=== PATIENT | female | born 1980 | race Caucasian/White ===

== ENCOUNTER 2025-07-09 20:15 | Inpatient (IN) | payer MEDICARE, MEDICAID, SELFPAY ==
[2025-07-09 16:17] LABS: Hematocrit 40.8 % (37.0-47.0); Hemoglobin 14.1 g/dL (12.0-16.0); Mean Corp Hgb Conc. 34.6 g/dL (33.0-37.0); Mean Corpuscular Volume 89.3 fL (81.0-99.0); Nucleated Red Blood Cells % 0 %; Platelet Count 431 10^3/uL (130-400); Red Cell Dist. Width 13.0 % (11.5-14.5)
[2025-07-09 16:32] LABS: ALT (SGPT) 17 U/L (0-35); AST (SGOT) 26 U/L (14-36); Albumin 4.9 g/dl (3.5-5.0); Alkaline Phosphatase 98 U/L (38-126); Blood Urea Nitrogen 10 mg/dl (7-17); Calcium 9.7 mg/dl (8.4-10.2); Carbon Dioxide 16 mmol/L (22-30); Chloride 107 mmol/L (98-107); Glucose 181 mg/dl (70-99); Potassium 3.4 mmol/L (3.5-5.1); Sodium 140 mmol/L (135-145); Total Protein 8.4 g/dl (6.3-8.2); eGFR > 60.00
--- NOTE | 2025-07-09 16:36 | ED.GENMED ---
History of Present Illness
<Saadia Falk PA-C - Last Filed: 07/09/25 21:54>
General
Chief Complaint: Unresponsive
Source: patient and ambulance crew
Exam Limitations: none
Time Seen by Provider: 07/09/25 16:06
History of Present Illness
History of Present Illness:
45yoF with a history of hypertension, hyperlipidemia, bipolar disorder, schizoaffective disorder presenting for evaluation of altered mental status. History is obtained by EMS. 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
'hunched over' behind her car this afternoon. Patient was not responding verbally and EMS was called. Patient is able to answer simple questions upon arrival. She reports having a headache earlier in the day and took Excedrin. She is unsure how
much she took but denies any suicidality. She also took baclofen at 8 AM. Otherwise, she denies taking any other substances including illicit drugs or alcohol. Patient currently reports feeling 'shaky' but otherwise denies any specific complaints.
Past History
<Saadia Falk PA-C - Last Filed: 07/09/25 21:54>
Past History
ED Past Medical History: GERD, Hypercholesterolemia, Psychiatric (Tremors depression, schizoaffective disorder, borderline personality disorder. Previous suicide attempts, primarily nontoxic ingestions. Previous psychiatric hospitalizations.) and
Other (migraine HAs, lumbar HNP)
ED Past Surgical History: None
Social History
Tobacco: Non-smoker
Alcohol: Occasional
Drug: None
Personal: Single
Living: with family
Employment: Employed
Family History
Family History: Hypertension
Phy Exam
<Saadia Falk PA-C - Last Filed: 07/09/25 21:54>
General Physical Exam
General Presentation: no apparent distress
General Skin: warm and dry
General Habitus: normal
General Mental: alert
ENT Exam
ENT Exam: normocephalic
Cardiovascular Exam
Cardiovascular Exam: no edema and tachycardia
Pulmonary Exam
Pulmonary Exam: lungs clear, no respiratory distress, no rales, no crackles, no rhonchi and no wheezing
Neurological Exam
Neurological Exam: alert and other (Dysarthria noted. Patient able to answer basic yes/no questions but unable to provide full history. Follows commands in all extremities. )
Martín Coma Scale
Eye Opening: Spontaneous
Verbal Response: Confused
Motor Response: Obeys Commands
GCS Total Score: 14
Skin Exam
Skin Exam: normal color and warm/dry
Psychiatric Exam
Psychiatric Exam: agitated
Course
<Saadia Falk PA-C - Last Filed: 07/09/25 21:54>
Orders/Labs/Results
Orders:
Orders
07/09/25 15:57
Electrocardiogram (*1) Urgent
Reason for Study: Tachycardia
EKG- Treatment ONCE
07/09/25 16:06
Complete Blood Count/With Diff Urgent
Comprehensive Metabolic Panel Urgent
HCG, Serum Qualitative Screen Urgent
Comment: ADD ON
Magnesium Urgent
Comment: ADD ON
TSH Urgent
Comment: ADD ON
07/09/25 16:33
Add On- LAB Urgent
Tests Added?: TSH, magnesium, qualitative HCG
Cardiac Monitoring- Treatment ONCE
0.9% Sodium Chloride 1000 ml [Nss] 1,000 ml IV BOLUS
07/09/25 16:34
CT Head W/o Iv Contrast Urgent
Comment:
Reason For Exam: AMS
07/09/25 16:36
Potassium Chloride [KCl] 40 meq PO NOW STA
07/09/25 17:51
Alcohol Urgent
Salicylate Urgent
Troponin I Urgent
Tylenol [Acetaminophen] Urgent
07/09/25 18:59
Sodium Bicarbonate 100 meq IV NOW STA
07/09/25 19:10
Acetylcysteine [Acetadote] 9,320 mg 0.45% Sodium Chloride 250 ml [0.45%NaCl] 200 ml IV NOW
07/09/25 19:15
Dextrose 5%/Water 1000 ml [D5w] 1,000 ml Sodium Bicarbonate 150 meq IV 150 mls/hr
07/09/25 19:17
Potassium Chloride [KCl] 20 meq 0.9% Sodium Chloride 150 ml [Nss] 150 ml IV NOW
07/09/25 19:21
Prothrombin Time Urgent
Salicylate Urgent
Venous Blood Gas Urgent
%Oxygen/Room Air: room air
07/09/25 19:42
Admit/Transfer Patient As Directed
Co-Sign Provider:
Level of Care: Inpatient admission
Assign to:: ICU
Physician / Group: wilman
Diagnosis: tylenol/aspirin overdose
Reason for Hospitalization: tylenol/aspirin overdose
Expected length of stay greater than two midnights?: Yes
ELOS- Estimated Length of Stay in days: 2
I certify the patient meets the requirements for IP care: Yes
PRN Pain Medication Management As Directed
May give lesser potent ordered pain med per pt: Yes
preference::
Protocol:: Medication orders for pain may be administered in a
manner that supports deferring to patient preference
when the pt is:
- Requesting an ordered lesser potent pain medication.
Least to most potent pain medications are defined
as: acetaminophen < NSAID < tramadol < opioids
(morphine, oxycodone, hydromorphone).
- Requesting a lesser dose of the same medication IF
ORDERED.
- Requesting a less intrusive route of administration
if both routes are prescribed by the provider (PO <
IV).
07/09/25 19:43
Code Status As Directed
Resuscitation Status: Full Code
07/09/25 20:26
Urinalysis Reflex To Culture Urgent
Date Specimen was Collected: 07/09/25
Time Specimen was Collected: 20:25
Urine Drug Abuse Screen Urgent
Date Specimen was Collected: 07/09/25
Time Specimen was Collected: 20:25
07/09/25 20:30
Acetylcysteine [Acetadote] 3,100 mg 0.45% Sodium Chloride 500 ml [0.45%NaCl] 500 ml IV ONCE
07/10/25 00:30
Acetylcysteine [Acetadote] 6,220 mg 0.45% Sodium Chloride 1000 ml [0.45%NaCl] 1,000 ml IV ONCE
07/10/25 03:00
Sterile Water For Inj [Sterile Water For Injection 1000 ml] 1,000 ml Sodium Bicarbonate 150 meq IV 150 mls/hr
Abnormal Lab Results
07/09/25 07/09/25 07/09/25
16:06 17:51 19:21
Plt Count 431 H 10^3/uL
(130-400)
Abs Immat Gran (auto) 0.1 H 10^3/uL
(0-0.05)
Absolute Neuts (auto) 7.7 H 10^3/uL
(1.4-6.5)
Immature Gran % 0.6 H %
(0-0.5)
Lymphocytes % 20.2 L %
(20.5-51.1)
VBG pCO2 30 L mmHg
(35-48)
VBG pO2 130 H mmHg
(30-50)
VBG HCO3 16.2 L mmol/L
(22-27)
Potassium 3.4 L mmol/L
(3.5-5.1)
Carbon Dioxide 16 L mmol/L
(22-30)
Glucose 181 H mg/dl
(70-99)
Total Protein 8.4 H g/dl
(6.3-8.2)
Salicylates 32.2 H* mg/dl 31.2 H* mg/dl
(2.0-20.0) (2.0-20.0)
Acetaminophen 70 H ug/ml
(10-30)
07/09/25 16:06
07/09/25 16:06
Vital Signs
Initial and Last Documented VS:
Initial Vital Signs
Temp Pulse Resp Pulse Ox
98.3 F 166 20 99
07/09/25 15:54 07/09/25 15:54 07/09/25 15:54 07/09/25 15:54
Last Documented Vital Signs
Temp Pulse Resp BP Pulse Ox
98.3 F 109 13 147/92 99
07/09/25 15:54 07/09/25 17:00 07/09/25 17:00 07/09/25 17:00 07/09/25 16:45
<Karol Silva MD - Last Filed: 07/09/25 19:06>
Orders/Labs/Results
Orders:
Orders
07/09/25 15:57
Electrocardiogram (*1) Urgent
Reason for Study: Tachycardia
EKG- Treatment ONCE
07/09/25 16:06
Complete Blood Count/With Diff Urgent
Comprehensive Metabolic Panel Urgent
HCG, Serum Qualitative Screen Urgent
Comment: ADD ON
Magnesium Urgent
Comment: ADD ON
TSH Urgent
Comment: ADD ON
07/09/25 16:33
Add On- LAB Urgent
Tests Added?: TSH, magnesium, qualitative HCG
Cardiac Monitoring- Treatment ONCE
0.9% Sodium Chloride 1000 ml [Nss] 1,000 ml IV BOLUS
07/09/25 16:34
CT Head W/o Iv Contrast Urgent
Comment:
Reason For Exam: AMS
07/09/25 16:36
Potassium Chloride [KCl] 40 meq PO NOW STA
07/09/25 17:51
Alcohol Urgent
Salicylate Urgent
Troponin I Urgent
Tylenol [Acetaminophen] Urgent
07/09/25 18:59
Sodium Bicarbonate 100 meq IV NOW STA
07/09/25 19:10
Acetylcysteine [Acetadote] 9,320 mg 0.45% Sodium Chloride 250 ml [0.45%NaCl] 200 ml IV NOW
07/09/25 19:15
Dextrose 5%/Water 1000 ml [D5w] 1,000 ml Sodium Bicarbonate 150 meq IV 150 mls/hr
07/09/25 19:17
Potassium Chloride [KCl] 20 meq 0.9% Sodium Chloride 150 ml [Nss] 150 ml IV NOW
07/09/25 19:21
Prothrombin Time Urgent
Salicylate Urgent
Venous Blood Gas Urgent
%Oxygen/Room Air: room air
07/09/25 19:42
Admit/Transfer Patient As Directed
Co-Sign Provider:
Level of Care: Inpatient admission
Assign to:: ICU
Physician / Group: wilman
Diagnosis: tylenol/aspirin overdose
Reason for Hospitalization: tylenol/aspirin overdose
Expected length of stay greater than two midnights?: Yes
ELOS- Estimated Length of Stay in days: 2
I certify the patient meets the requirements for IP care: Yes
PRN Pain Medication Management As Directed
May give lesser potent ordered pain med per pt: Yes
preference::
Protocol:: Medication orders for pain may be administered in a
manner that supports deferring to patient preference
when the pt is:
- Requesting an ordered lesser potent pain medication.
Least to most potent pain medications are defined
as: acetaminophen < NSAID < tramadol < opioids
(morphine, oxycodone, hydromorphone).
- Requesting a lesser dose of the same medication IF
ORDERED.
- Requesting a less intrusive route of administration
if both routes are prescribed by the provider (PO <
IV).
07/09/25 19:43
Code Status As Directed
Resuscitation Status: Full Code
07/09/25 20:26
Urinalysis Reflex To Culture Urgent
Date Specimen was Collected: 07/09/25
Time Specimen was Collected: 20:25
Urine Drug Abuse Screen Urgent
Date Specimen was Collected: 07/09/25
Time Specimen was Collected: 20:25
07/09/25 20:30
Acetylcysteine [Acetadote] 3,100 mg 0.45% Sodium Chloride 500 ml [0.45%NaCl] 500 ml IV ONCE
07/10/25 00:30
Acetylcysteine [Acetadote] 6,220 mg 0.45% Sodium Chloride 1000 ml [0.45%NaCl] 1,000 ml IV ONCE
07/10/25 03:00
Sterile Water For Inj [Sterile Water For Injection 1000 ml] 1,000 ml Sodium Bicarbonate 150 meq IV 150 mls/hr
Abnormal Lab Results
07/09/25 07/09/25 07/09/25
16:06 17:51 19:21
Plt Count 431 H 10^3/uL
(130-400)
Abs Immat Gran (auto) 0.1 H 10^3/uL
(0-0.05)
Absolute Neuts (auto) 7.7 H 10^3/uL
(1.4-6.5)
Immature Gran % 0.6 H %
(0-0.5)
Lymphocytes % 20.2 L %
(20.5-51.1)
VBG pCO2 30 L mmHg
(35-48)
VBG pO2 130 H mmHg
(30-50)
VBG HCO3 16.2 L mmol/L
(22-27)
Potassium 3.4 L mmol/L
(3.5-5.1)
Carbon Dioxide 16 L mmol/L
(22-30)
Glucose 181 H mg/dl
(70-99)
Total Protein 8.4 H g/dl
(6.3-8.2)
Salicylates 32.2 H* mg/dl 31.2 H* mg/dl
(2.0-20.0) (2.0-20.0)
Acetaminophen 70 H ug/ml
(10-30)
07/09/25 16:06
07/09/25 16:06
Vital Signs
Initial and Last Documented VS:
Initial Vital Signs
Temp Pulse Resp Pulse Ox
98.3 F 166 20 99
07/09/25 15:54 07/09/25 15:54 07/09/25 15:54 07/09/25 15:54
Last Documented Vital Signs
Temp Pulse Resp BP Pulse Ox
98.3 F 109 13 147/92 99
07/09/25 15:54 07/09/25 17:00 07/09/25 17:00 07/09/25 17:00 07/09/25 16:45
<Saadia Falk PA-C - Last Filed: 07/09/25 21:54>
MDM/Problems Addressed
Differential Diagnosis Includes:
45yoF here with AMS. Found 'hunched over' unresponsive by her car this afternoon. Patient had minimal speech on arrival for triage nurse although she is able to answer simple questions on my assessment. She admits to taking Excedrin but unable to
provide any further details. She is tachycardic on arrival. Differential diagnosis includes but is not limited to: Toxidrome/drug overdose, electrolyte disturbance, renal failure, psychiatric, considered CVA although less likely
Initial ED plan: Check cardiac labs, TSH, salicylate/Tylenol/alcohol level, UDS, EKG, and CT head. IV fluid bolus.
<Saadia Falk PA-C - Last Filed: 07/09/25 21:54>
*Pulse Oximetry
SaO2: 99
Oxygen Mode of Delivery: Room air
Patient hypoxic: no (99%)
*EKG
Interpreted by ED Provider?: Yes
EKG Intrepretation Date: 07/09/25
Heart Rate: 116
Rate: tachycardiac
Rhythm: sinus
[place]: normal axis
Interval: other (QTc 480)
QRS Pattern: normal QRS
Ischemia: no ischemia
*Critical Care Note
Total Time (30-74mins, 75-104mins- exclusive of procedures): 35
<Saadia Falk PA-C - Last Filed: 07/09/25 21:54>
Update Note
Update Note:
Labs reveal a metabolic acidosis with a bicarb of 16. Salicylates 32.2 and Tylenol level 70. EKG shows sinus tachycardia with a QTc of 480. I spoke with patient again to inquire about her Excedrin. She is again unable to tell me exactly how much
she took but states she believes she took the medication around noon today. Patient persistently tachycardic and dry heaving on reassessment.
I spoke with on-call valve assembler at [facility], Dr. Alvarado, for recommendations. As history is unclear, will treat for both Tylenol and salicylate overdose. Toxicology recommending N-acetylcysteine with repeat CMP/INR in the morning and if normal at
that time, this can be discontinued. For the salicylate overdose, toxicology recommends 2 amps of bicarb now followed by a bicarb drip at 150 cc/hr and checking CMP, VBG, and salicylate levels every 4 hours. Stop criteria for bicarb gtt: pH >7.55
or if salicylate level is <20 for 2 consecutive checks and mentation is normal. Patient hospitalized for further management.
ED Attending Note
<Saadia Falk PA-C - Last Filed: 07/09/25 21:54>
-
Portions of this chart may have been created with voice recognition software.� Occasional wrong word or��sound alike� substitutions may have occurred due to the inherent limitations of voice recognition software.
<Karol Silva MD - Last Filed: 07/09/25 19:06>
ED Attending Note
Patient seen and examined by attending physician: Yes
I performed the substantive portion of visit, reviewed & personally made and approve the management plan that is documented in note by myself or BRITTANY.: Yes
ED Attending Note:
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 When asked to estimate she repeatedly states she does not know. She can commit to stating that it was less than 20
tablets that she took but cannot be more specific than that. She denies any other ingestions besides the usual doses of her usual medications. She was found behind her car at work slow to answer questions. No history or suspicion of trauma. Here
in the ER, patient is a poor historian. She denies any physical needs. She does specifically deny taking these meds as an intent for suicide. She states she just had a really bad headache that she wanted to get better. Patient is awake, not
confused, well-perfused. Labs and vitals noted here. Given that timeline is somewhat blurry as patient is somewhat nonspecific with timing, we will treat acetaminophen toxicity with NAC protocol, aspirin with bicarb drip, etc. etc. We have
consulted with [facility] valve assembler, are following those recommendations, admit to ICU.
Discharge Plan
Departure
Patient Disposition: Admit
Date of Disposition: 07/09/25
Time of Disposition: 19:14
Presentation/result/management discussed w/ accepting MD/DO: Hospitalist
Discharge Problem:
Salicylate overdose, Acetaminophen overdose, Acute encephalopathy
Interventions
Interventions:
*Risk Screen - Suicide Last Done: 07/09/25 17:11
*General Assessment Last Done: 07/09/25 17:11
*Neglect/Abuse Screening Last Done: 07/09/25 17:11
ED- Neurological Assessment Last Done: 07/09/25 16:00
[2025-07-09 16:52] LABS: HCG, Serum Qualitative Screen Negative
[2025-07-09] MEDS: NSS 1000 IV (16:55)
[2025-07-09 17:00] VITALS: BP 147/92
[2025-07-09 17:00] LABS: Magnesium 1.8 mg/dl (1.6-2.3)
[2025-07-09 17:10] VITALS: BMI 22.8
[2025-07-09 17:29] LABS: TSH 0.70 uIU/ml (0.47-4.68)
[2025-07-09 18:19] LABS: Acetaminophen 70 ug/ml (10-30); Salicylate 32.2 mg/dl (2.0-20.0)
[2025-07-09 18:25] LABS: Troponin I < 0.012 ng/ml
[2025-07-09 19:26] VITALS: BP 162/83
[2025-07-09] MEDS: SODIUM BICARBONATE 100 MEQ IV (19:32)
[2025-07-09] MEDS: ACETADOTE 246.6 MG IV ×2 (19:35→19:58)
[2025-07-09 19:36] LABS: Venous Blood Gas B.E. -8.2 mmol/L (-4 to +4); Venous Blood Gas O2 Sat % 99.7 %
[2025-07-09 19:47] LABS: INR 1.00; PT 13.7 Sec (11.4-14.6)
--- NOTE | 2025-07-09 19:47 | HPS.HSE ---
Family Physician
-
Family Physician: * NONE
Chief Complaint
-
drug overdose
History of Present Illness
45-year-old female past medical history of propranolol overdose, hypertension, hyperlipidemia, bipolar disorder, schizoaffective disorder, presenting for altered mental status. 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
hunched over behind her car this afternoon. Patient was not responding verbally and EMS was called. She reports having a migraine earlier in the day and took a massive number of Excedrin tablets to help with the headache. Although she has been
intermittently depressed she notes that her mood has not been particularly been bad in the past few days. She is complaining of vomiting and some abdominal discomfort from vomiting and shakiness. Denies diarrhea. Denies chest pain or shortness of
breath. She states that her headache is completely cured.
Her last migraine was in January.
She denies smoking or alcohol. She does have a medical marijuana card but she has not used marijuana since June 08.
Medical History
Past Medical History
Past Medical History: Reports Other ( propranolol overdose, hypertension, hyperlipidemia, bipolar disorder, schizoaffective disorder)
Past Surgical History: Reports None
Social History
Tobacco: Non-smoker
Alcohol: None
Drug: Marijuana
Family History
Family History: Not pertinent
Allergies / Home Medications
Allergies reflects when Allergies were last updated in [facility].
Home Medications with original date entered in [facility]
Allergy/Medication List:
Allergies
Allergy/AdvReac Type Severity Reaction Status Date / Time
amoxicillin (Amoxicillin) Allergy Rash Verified 07/09/25 16:00
chlorpromazine (From Allergy Unknown Verified 07/09/25 16:00
Thorazine)
haloperidol (From Haldol) Allergy Unknown Verified 07/09/25 16:00
Home Medications
acetaminophen 325 mg tablet 650 mg (2 x 325 mg) PO Q4HPRN PRN mild pain or fever ##0 10/22/15
Atorvastatin 1 DAILY 03/02/21
Clomipramine HCl 1 PO Daily 03/02/21
Seroquel 1 PO DAILY 03/02/21
Wellbutrin XL (24 HR extended release): 1 PO Daily 03/02/21
Review of Systems
-
History Source: Patient
A 12 point ROS was completed and negative except as noted: Yes
Constitutional: Reports No Symptoms
EENT: Reports No Symptoms
Respiratory: Reports No Symptoms
Cardiac: Reports No Symptoms
Abdomen/GI: Reports See HPI
: Reports No Symptoms
Musculoskeletal: Reports No Symptoms
Skin: Reports No Symptoms
Neurological: Reports No Symptoms
Endocrine: Reports No Symptoms
Hematologic/Lymphatic: Reports No Symptoms
Psych: Reports No Symptoms
Physical Exam
Vital Signs
Vital Signs
Temp Pulse Resp BP Pulse Ox
98.3 F 109 13 147/92 99
07/09/25 15:54 07/09/25 17:00 07/09/25 17:00 07/09/25 17:00 07/09/25 16:45
Physical Exam
General: Well Developed, Well Nourished and No Apparent Distress
HEENT: NormoCephalic, Moist mucous membranes and Atraumatic
Respiratory: Clear
Cardiac: S1/S2 and Regular Rhythm; No Murmur or Rub
GI: Soft, Non Tender, Non Distended and Normal Bowel Sounds; No Organomegaly
Rectal: Deferred by Provider
Musculoskeletal: No Clubbing, No Cyanosis and No Edema
Skin: No Rash
Neuro: Nonfocal/grossly intact
Laboratory Results
-
07/09/25 16:06
07/09/25 16:06
Laboratory Results
Total Bilirubin 0.4 mg/dl (0.2-1.3) 07/09/25 16:06
AST 26 U/L (14-36) 07/09/25 16:06
ALT 17 U/L (0-35) 07/09/25 16:06
Alkaline Phosphatase 98 U/L (38-126) 07/09/25 16:06
Troponin I < 0.012 ng/ml 07/09/25 17:51
Data Reviewed
-
Lab Data: Labs Reviewed by me
Old Records: Reviewed
Impression/Plan
-
IMPRESSION:
PLAN:
# Tylenol/aspirin overdose
- Salicylate level 32
- Tylenol level 70
-Alcohol level negative
-EKG shows sinus tachycardia, possible left atrial enlargement, QTc of 480, QRS of 92
- Poison control at [facility] (Dr. Alvarado) recommended NAC and bicarb drip. Rechecking CMP and INR in the morning and if normal NAC can be discontinued. VBG, CMP and salicylates will be checked every 4 hours and bicarb drip can be stopped if pH greater
than 7.55 or salicylate level under 20 x2 and mentation normalizes
- UDS pending
- Urinalysis pending
- Zofran for nausea although check EKG every 8 hours to monitor for QTc prolongation and QRS widening
- Not suicidal, but one-to-one sitter given poor judgment
- Psychiatry consulted
# Hypokalemia secondary to vomiting
- Replete potassium
History of propranolol overdose
Essential hypertension
Hyperlipidemia
Bipolar disorder
Schizoaffective disorder
Medical marijuana user
Hx of migraines
Full code
DVT prophylaxis�heparin
Regular diet
[2025-07-09] MEDS: SODIUM BICARBONATE 1150 MEQ IV (19:56)
[2025-07-09 20:00] VITALS: BP 141/91
[2025-07-09 20:00] LABS: Salicylate 31.2 mg/dl (2.0-20.0)
[2025-07-09] MEDS: KCL 160 MEQ IV (20:19)
[2025-07-09 20:33] LABS: Urine Character Clear (Clear)
[2025-07-09 21:07] LABS: Urine Squamous Cell >20 /LPF (Few); Urine White Cell 0-2 /HPF (0-5)
[2025-07-09] MEDS: ACETADOTE 515.5 MG IV (21:37)
[2025-07-09 22:05] VITALS: BMI 28.8
[2025-07-09 22:06] LABS: APTT 22.6 Sec (23.4-35.0)
[2025-07-09] MEDS: ZOFRAN 4 MG IV (22:06)
[2025-07-09] MEDS: HEPARIN 5000 UNITS SC (22:10)
[2025-07-09 22:30] VITALS: BP 129/70
[2025-07-09 22:30] LABS: Magnesium 1.7 mg/dl (1.6-2.3)
[2025-07-09 22:45] VITALS: BP 125/63
--- NOTE | 2025-07-09 22:58 | PTCARENOTE ---
Pt arrived to floor via stretcher from the ED. Pt able to ambulate from stretcher to bed without difficulty. CHG bath provided. Pt complaining of some tingling of hands, pt reports baseline hand tremor. HR in the 80's in NSR on the monitor. POX
100% on RA. Lungs clear. Pt dry heaving and complaining of abd discomfort. PRN Zofran administered as ordered. Hyper bowel, round abd. Palpable peripheral pulses. Skin intact. Right AC int infusing Acetadate as ordered. Left AC int infusing D5W with
Sodium BIcarb @150ml/hr, as well as KLC rider. Pt cooperative with care. No issues to report at this time. Vital signs stable. Pt resting comfortably. 1:1 observation maintained per MD order.
[2025-07-09 23:00] VITALS: BP 125/60
[2025-07-10] VITALS (18 sets, daily range): BP systolic 120–163; BP diastolic 59–108; BMI 28.8
[2025-07-10 00:31] LABS: Venous Blood Gas B.E. 2.4 mmol/L (-4 to +4); Venous Blood Gas O2 Sat % 99.8 %
[2025-07-10 00:34] LABS: Venous Blood Gas O2 Therapy ROOM AIR
[2025-07-10 01:04] LABS: ALT (SGPT) 16 U/L (0-35); AST (SGOT) 29 U/L (14-36); Albumin 4.5 g/dl (3.5-5.0); Alkaline Phosphatase 45 U/L (38-126); Blood Urea Nitrogen 8 mg/dl (7-17); Calcium 8.9 mg/dl (8.4-10.2); Carbon Dioxide 21 mmol/L (22-30); Chloride 108 mmol/L (98-107); Estimated Creatinine Clearance 87 ml/min; Glucose 148 mg/dl (70-99); Potassium 3.5 mmol/L (3.5-5.1); Salicylate 17.6 mg/dl (2.0-20.0); Sodium 141 mmol/L (135-145); Total Protein 7.8 g/dl (6.3-8.2); eGFR > 60.00
[2025-07-10] MEDS: ACETADOTE 1031.1 MG IV (01:59)
[2025-07-10 04:32] LABS: Venous Blood Gas B.E. 3.2 mmol/L (-4 to +4); Venous Blood Gas O2 Sat % 100.0 %
[2025-07-10 04:34] LABS: Venous Blood Gas O2 Therapy ROOM AIR
--- NOTE | 2025-07-10 04:36 | PTCARENOTE ---
Pt ambulatory to bathroom with standby assist. Pt stable on feet. Pt continues with some intermittent nausea, but much improved from earlier. Pt washed face, brushed teethe. AM lab work obtained. EKG obtained showing prolonged QT. Malinda GARAY
notified. PRN Zofran discontinued. Acetadate and IVF continue to infuse as ordered. No other changes in assessment noted at this time. Will continue to monitor.
[2025-07-10 04:44] LABS: Hematocrit 38.2 % (37.0-47.0); Hemoglobin 13.8 g/dL (12.0-16.0); Mean Corp Hgb Conc. 36.1 g/dL (33.0-37.0); Mean Corpuscular Volume 86.4 fL (81.0-99.0); Nucleated Red Blood Cells % 0 %; Platelet Count 416 10^3/uL (130-400); Red Cell Dist. Width 12.6 % (11.5-14.5)
[2025-07-10] MEDS: SODIUM BICARBONATE 1150 MEQ IV (04:51)
[2025-07-10 04:57] LABS: Magnesium 1.7 mg/dl (1.6-2.3)
[2025-07-10 04:59] LABS: ALT (SGPT) 17 U/L (0-35); AST (SGOT) 32 U/L (14-36); Albumin 4.7 g/dl (3.5-5.0); Alkaline Phosphatase 73 U/L (38-126); Blood Urea Nitrogen 7 mg/dl (7-17); Calcium 9.0 mg/dl (8.4-10.2); Carbon Dioxide 21 mmol/L (22-30); Chloride 104 mmol/L (98-107); Estimated Creatinine Clearance 87 ml/min; Glucose 136 mg/dl (70-99); Potassium 3.1 mmol/L (3.5-5.1); Salicylate 10.8 mg/dl (2.0-20.0); Sodium 139 mmol/L (135-145); Total Protein 8.4 g/dl (6.3-8.2); eGFR > 60.00
[2025-07-10] MEDS: KCL 270 MEQ IV (05:52)
[2025-07-10] MEDS: MAGNESIUM OXIDE 400 MG PO (05:53)
[2025-07-10] MEDS: KCL 40 MEQ PO (05:54)
--- NOTE | 2025-07-10 07:15 | PTCARENOTE ---
@ handoff pt is awake and alert. Reports difficulty sleeping due to mild sleep apnea and that she did not have her machine. She did not report this to anyone. I informed her that had we known we could have obtained an order or at minimum placed
oxygen on her should she had dozed off. She jordan not recall her settings and does not have anyone that could get it from her home. She is maintained on a suicide 1:1 as ordered. Her affect is flat with soft voice quality. She was informed on the plan
of care including frequency of lab work to reassess her levels, and EKG to assess her Qt interval. She nodded her head in understanding. Lungs remain CTA, with good peripheral pulses. Tolerating clears. +BSX4 hyperactive. Reports BM in the ED and
she stated she isn't doing bad with her history of IBS. Safe environment maintained. Will continue to monitor.
--- NOTE | 2025-07-10 07:34 | CON.INTV ---
Consultation
Consultation Request
Date/Time Consultation Requested: 07/10/2025-7:30 AM
Date/Time Consultation Performed: 07/10/2025-7:30 AM
Requesting Provider: Hospitalist
Performing Provider: Dr. Castillo
Reason for Consultation: Overdose/critical care management
Medical History
-
Chief Complaint: Drug overdose
History of Present Illness:
45-year-old non-smoking, previously vaping female with a history of hypertension, hyperlipidemia, bipolar and schizoaffective disorder who also has a history of a propranolol overdose found hunched over behind her car the day of admission not
responsive verbally having reported a migraine earlier and took a massive number of Excedrin tablets-patient was admitted with Tylenol overdose and coiler operator consulted for overdose/critical care management 07/10/2025. Her affect is somewhat flat
this morning but alert and oriented and no complaints of shortness of breath, chest pain, chest tightness, chest congestion, productive cough, pleurisy, abdominal pain, nausea, focal weakness or leg swelling.
Past Medical History
Past Medical History: None (Hypertension. Hyperlipidemia. Bipolar. Obstructive sleep apnea on CPAP. Schizoaffective disorder. History of propranolol overdose.)
Social History
Tobacco: Vaping
Alcohol: None
Drug: Marijuana
Occupational Exposures: No known asbestos exposure
Environmental Exposures: No known tuberculosis exposure
Family History
Family History: Reviewed & Not Pertinent
Allergies / Home Medications
Allergies
Allergy/AdvReac Type Severity Reaction Status Date / Time
amoxicillin (Amoxicillin) Allergy Rash Verified 07/09/25 16:00
haloperidol (From Haldol) Allergy Lockjaw Verified 07/09/25 20:30
chlorpromazine (From AdvReac Memory Verified 07/09/25 20:30
Thorazine) impairment
Home Medications
�Medication �Instructions �Recorded �Confirmed �Last Taken �Type
fmodvsy-frihmzhtpmtnd-emvwgggm 250 2 tab PO Q6H PRN migraine 07/09/25 07/09/25 07/09/25 History
mg-250 mg-65 mg tablet (Excedrin
Migraine)
baclofen 20 mg tablet 20 mg PO BID 07/09/25 07/09/25 Unknown History
Review of Systems
-
Unable to Obtain full review of systems at this time due to: Other (Per HPI)
Vitals / Labs / Diagnostic Testing
Vital Signs
Temp Pulse Resp BP Pulse Ox
97.6 F 85 19 125/59 99
07/10/25 07:29 07/10/25 04:30 07/10/25 04:30 07/10/25 04:00 07/10/25 04:30
Lab Data
07/10/25 04:19
Laboratory Results
07/09/25
19:21
PT 13.7
INR 1.00
APTT 22.6 L
Diagnostic Testing:
Physical Exam
-
Exam:
Well-nourished and well-developed in no apparent distress
HEENT-atraumatic, normocephalic
Neck-supple, no JVD, no bruit
Heart-regular rate and rhythm-no murmurs, rubs or gallops
Chest-clear to auscultation, no wheezes, crackles
Back-no tenderness
Abdomen-soft, nontender, nondistended, no hepatosplenomegaly
Extremities-no cyanosis, clubbing, edema and good peripheral pulses
Integument-intact, no rashes, lesions or ecchymosis
Neurology-alert and oriented, nonfocal motor and sensory exam
Assessment
-
45-year-old non-smoking, previously vaping female with a history of hypertension, hyperlipidemia, bipolar and schizoaffective disorder who also has a history of a propranolol overdose found hunched over behind her car the day of admission not
responsive verbally having reported a migraine earlier and took a massive number of Excedrin tablets-patient was admitted with Tylenol overdose and coiler operator consulted for overdose/critical care management 07/10/2025.
Tylenol/aspirin overdose-unclear if intentional-denies
Initial salicylate level 32.2, acetaminophen level 70
Hypokalemia
Mild leukocytosis-WBC 15.8
Respiratory alkalosis
Mild hyperglycemia
Prolonged QT-QTc 557
Conditions present prior to admission:
Hypertension.
Hyperlipidemia.
Bipolar.
Obstructive sleep apnea on CPAP.
Schizoaffective disorder.
History of propranolol overdose.
Plan
Patient will be admitted to medical intensive care unit for close observation
Supplemental oxygen if needed
High flow oxygen if needed
Intubate and mechanically ventilate if needed
Aspiration precautions
Nebulizers if needed-currently not bronchospastic
Monitor minute ventilation as aspirin overdoses can lead to tachypnea and respiratory alkalosis as well as elevated anion gap metabolic acidosis-also watch for hyperthermia, tachycardia, tinnitus
Patient's 4 hour acetaminophen level significantly elevated and patient warrants N acetylcysteine therapy
GI decontamination if patient has fairly rapid presentation (within 4 hours) and there are no contraindications (decreased sensorium, emesis, aspiration risk) with activated charcoal 1 g/kilogram with max dose 50 g
Check acetaminophen poisoning nomogram
NAC will begin if applicable per nomogram or if unknown time of ingestion if serum levels >10 mcg/mL (66 �mol/liter)
Serious hepatotoxicity uncommon if NAC given within 8 hours of ingestion
Consider 20 hour IV, 72 hour oral, 12 hour protocol or other
Follow coags and ALT level every 12 hours
Monitor for side effects to NAC-10-20% can develop anaphylactoid or anaphylaxis
Consider other therapies such as Cimetidine, Fomepizole or extracorporeal removal
GI evaluation if significant hepatotoxicity
Bicarb drip also initiated-once salicylic acid levels within normal can discontinue bicarb drip
Psychiatry evaluation
1:1
DVT prophylaxis-mechanical
GI prophylaxis if intubated
Early mobilization
Patient seen by Dr. Zapata 05/23/2017-has a history of obstructive sleep apnea-Will ask her to return to office after this hospitalization
Critical care statement: A total of 65 minutes of critical care time was provided for this patient today. This includes management of unstable vital signs, evaluation of the patient at bedside, reviewing the patient's pertinent medical records
including radiographs, microbiology, laboratory evaluations, and discussion with primary team, consultants, pharmacy, charge nurse, critical care nursing, and respiratory therapy.
Diagnostic data:
Chest x-ray 03/02/21-NAD
Chest x-ray 07/10/2025-NAD, mild cardiomegaly
CT head 07/09/2025-no acute intracranial abnormalities
Data Reviewed
-
EKG: Report reviewed by me
Radiology: Report reviewed by me
Medical Tests (Nuc Med, Echo etc): Report reviewed by me
Labs: Labs reviewed by me
Old Records: Reviewed
Critical Care Time (in minutes): 65
--- NOTE | 2025-07-10 07:54 | W.PN.HOSP.TC ---
Today's Communication/Plan
-
Conservative management with IV fluids, antinausea medications.
Tylenol and aspirin level improved.
Pending psych eval
Assessment / Plan
Assessment / Plan
Impression:
45-year-old female past medical history of propranolol overdose, hypertension, hyperlipidemia, bipolar disorder, schizoaffective disorder, presenting for altered mental status. 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
hunched over behind her car this afternoon. Patient was not responding verbally and EMS was called. She reports having a migraine earlier in the day and took a massive number of Excedrin tablets to help with the headache. Although she has been
intermittently depressed she notes that her mood has not been particularly been bad in the past few days. She is complaining of vomiting and some abdominal discomfort from vomiting and shakiness. Denies diarrhea. Denies chest pain or shortness of
breath. She states that her headache is completely cured.
Her last migraine was in January.
She denies smoking or alcohol. She does have a medical marijuana card but she has not used marijuana since June.
Tylenol and aspirin level improved.
Assessment/plan:
Tylenol/aspirin overdose
- Salicylate level 32
- Tylenol level 70
-Alcohol level negative
-EKG shows sinus tachycardia, possible left atrial enlargement, QTc of 480, QRS of 92
- Poison control at [facility] (Dr. Alvarado) recommended NAC and bicarb drip. Rechecking CMP and INR in the morning and if normal NAC can be discontinued. VBG, CMP and salicylates will be checked every 4 hours and bicarb drip can be stopped if pH greater
than 7.55 or salicylate level under 20 x2 and mentation normalizes
- UDS pending
- Urinalysis pending
- Zofran for nausea although check EKG every 8 hours to monitor for QTc prolongation and QRS widening
- Not suicidal, but one-to-one sitter given poor judgment
- Psychiatry consulted
07/10
Tylenol and aspirin level improved.
Pending psych evaluation
# Hypokalemia secondary to vomiting
- Replete potassium
History of propranolol overdose
Essential hypertension
Hyperlipidemia
Bipolar disorder
Schizoaffective disorder
Medical marijuana user
Hx of migraines
CODE STATUS: Full code
DVT prophylaxis: Heparin
Diet: Regular diet
Disposition: Pending psych evaluation
Total time spent on today's encounter was 65 minutes which included time spent in counseling the patient/family regarding diagnosis and treatment plan as listed above, goals of care, and symptom management. Case was discussed with nursing staff,
specialists, and care coordinators/case management. All labs and imaging personally reviewed by me. Remainder the time spent in detailed review of previous records, lab data, imaging, and other medical provider documentation.
Anticipated Discharge: 24 - 48 hours
Subjective/Interval History
-
Date of Service: July 10, 2025
Patient overall feeling better, still complaining of nausea but was eating breakfast.
No chest pain or shortness of breath.
Objective Data
-
Labs:
Laboratory Results
07/09/25 07/10/25 07/10/25
19:21 00:20 04:19
WBC 15.8 H
Hgb 13.8
Hct 38.2
Plt Count 416 H
APTT 22.6 L
Sodium 141 139
Potassium 3.5 3.1 L
Chloride 108 H 104
Carbon Dioxide 21 L 21 L
BUN 8 7
Creatinine 0.4 L 0.5 L
Glucose 148 H 136 H
Calcium 8.9 9.0
Total Bilirubin 0.4 0.4
AST 29 32
ALT 16 17
Alkaline Phosphatase 45 73
07/10/25 07/10/25
08:00 12:00
WBC
Hgb
Hct
Plt Count
APTT
Sodium Pending Pending
Potassium Pending Pending
Chloride Pending Pending
Carbon Dioxide Pending Pending
BUN Pending Pending
Creatinine Pending Pending
Glucose Pending Pending
Calcium Pending Pending
Total Bilirubin Pending Pending
AST Pending Pending
ALT Pending Pending
Alkaline Phosphatase Pending Pending
Vital Signs:
Vital Signs
Temp Pulse Resp BP Pulse Ox
97.6 F 85 19 125/59 99
07/10/25 07:29 07/10/25 04:30 07/10/25 04:30 07/10/25 04:00 07/10/25 04:30
I&O
07/09/25 07/10/25 07/11/25
06:59 06:59 06:59
Intake Total 2136.5 / 2539.0 402.5 / 402.5
Balance 2136.5 / 2539.0 402.5 / 402.5
Physical Exam
-
General: Well Developed, Well Nourished, No Apparent Distress and Comfortable
HEENT: Normocephalic, Atraumatic, Moist Mucous Membranes, No Ptosis, PERRLA and Nose Appears Normal
Respiratory: Clear to Auscultation and Non Labored Respirations
Cardiac: Regular Rhythm and S1/S2
Breast: Deferred by me
GI: Soft, Nontender, Nondistended and Normal Bowel Sounds
Genito-urinary: No Costovertebral Tender
Musculoskeletal: No Clubbing, No Cyanosis and No Edema
Skin: Warm
Neuro: Awake, Alert, Oriented, AO x 3 and No Motor Deficits
Psych: Calm
Data Reviewed
-
Diagnostic Radiology: Image personally visualized and interpreted and Report Reviewed by me
CT Scan: Image personally visualized and interpreted and Report Reviewed by me
Ultrasound: Image personally visualized and interpreted and Report Reviewed by me
MRI: Image personally visualized and interpreted and Report Reviewed by me
Medical Tests (Nuc Med, Echo etc): Image personally visualized and interpreted and Report Reviewed by me
Labs: Labs Reviewed by me
Old Records: Reviewed
[2025-07-10] MEDS: LIORESAL 20 MG PO ×2 (08:37→21:29)
[2025-07-10] MEDS: HEPARIN 5000 UNITS SC (08:37)
[2025-07-10 08:47] LABS: Venous Blood Gas B.E. 6.7 mmol/L (-4 to +4); Venous Blood Gas O2 Sat % 96.9 %
[2025-07-10 09:12] LABS: ALT (SGPT) 15 U/L (0-35); AST (SGOT) 31 U/L (14-36); Albumin 4.2 g/dl (3.5-5.0); Alkaline Phosphatase 70 U/L (38-126); Blood Urea Nitrogen 6 mg/dl (7-17); Calcium 8.8 mg/dl (8.4-10.2); Carbon Dioxide 27 mmol/L (22-30); Chloride 106 mmol/L (98-107); Estimated Creatinine Clearance 87 ml/min; Glucose 132 mg/dl (70-99); Potassium 3.4 mmol/L (3.5-5.1); Salicylate 3.9 mg/dl (2.0-20.0); Sodium 140 mmol/L (135-145); Total Protein 7.2 g/dl (6.3-8.2); eGFR > 60.00
--- NOTE | 2025-07-10 11:17 | CS.PSYCHR ---
Consult Summary - Psychiatry
-
pt seen this am; called to see her due to overdose on excedrin which led to ICU stay
45 yo woman with long history of unstable mood/anxiety, brought to ED after being found behind her car by a co-worker in altered mental state. Had taken overdose of excedrin allegedly to help treat migraine headache. Could not and cannot say why so
many, except that the headache was not going away. Denies it was suicide attempt, sort of.
Recounts ongoing serious life stressors; had gone to work for [email or web address] residential program in [place], where she lives, but found conditions of concern so began speaking up--was fired in April. 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 Has no health insurance at present--says she went to [facility] assistance office and was told she needed termination letter from [email or web address], and 'it just causes me too much anxiety to deal with
them.'
Lives alone in rented room, has three friends, two are letting her down in various ways, the other she does not want to burder. Brother and sister 'don't really care.'
Has had extensive history of mental illness, with repeated suicide attempts by overdose. Has been hospitalized many times, lists [facility], [facility] with outpatient followup not always as closely as she would like. States she
spent several years in [facility] partial program, but i cannot find records of this in [facility].Tells me that she was told she overused the partial hospital system at [place]; she would like to be in a residential program but has no funding at
present.
Parents have both in past 6 years. Siblings not supportive per pt.
Claims parents and brother bipolar, says brother drinks and does meth.
many overdoses documented in [place] ED records. pt also reports trying to hang herself with bedclothes in past.
On exam pt is lying in bed with IV fluids infusing. Complains of abdomnal pain, says will never overdose oe excedrin again for this reason. denies this was a suicide attempt but agrees life is not going well for her. Affect generally constricted but
reactive through full range. no signs of cognitive impairment, not psychotic.
Impression: borderline personality disorder, adjustment disorder with mixed features
I attempted to get pt to take some ownership of care going forward, but was not able to say whether she wants inpatient or not, or if she needs 1: 1. Externalizes most questions ('You guys just put me away somewhere and then drop the ball with the
outpatient followup care.') Blames current situation on the management at [employer] where she had worked, and who fired her because she spoke up about bad conditions.
At this point can likely d/c 1:1, would plan inpatient stay only if patient agreeable, would not 302 at this point. Unless she buys into the treatment it will be was worthless as she says.
No meds at present.
[2025-07-10] MEDS: PROTONIX 40 MG PO (11:20)
[2025-07-10] MEDS: TIGAN 200 MG IM (11:21)
[2025-07-10 11:23] LABS: Acetaminophen < 10 ug/ml (10-30)
[2025-07-10 11:30] LABS: Acetaminophen < 10 ug/ml (10-30)
--- NOTE | 2025-07-10 11:31 | CM ---
OD. Currently with 1:[address] Initial assessment completed with patient who rents a room in a 2 story house with the safety counselor and 2 other tenants in the home, B/B on , 1 step to enter. KELP GATHERER patient was independent in ADL's and ambulation, drives,
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 Work hours vary depending on cases. Has and uses a CPAP. No other DME. No in-home services. No HC-POA. No VA benefits. Has had psychiatric hospitalizations. Last being more than 2 years ago. PCP is Dr. Bowers
Jayce. Pharmacy is [facility] on [address] in [place]. Discharge POC: TBD. Psychiatry has seen patient.
--- NOTE | 2025-07-10 12:25 | PTCARENOTE ---
TT's care team regarding need for Acetadote with Acetaminophen levels being <10, and to discontinue drip. Iff Q4 lab work and serial EKG's were still needed as well along with 1:1 suicide/psych evaluation. Will discontinue Acetadote as ordered,
along with 1:1.
--- NOTE | 2025-07-10 12:54 | PN.CDI ---
CDI
- -
CDI:
Physician Documentation Request
Admit Date: 07/09/25 20:15
Dear Doctor Sorin,
Clinical Indicators:
Patient admitted with Salicylate/Acetaminophen overdose.
07/09 ED report, '...Found 'hunched over' unresponsive by her car this afternoon. Patient had minimal speech on arrival for triage nurse although she is able to answer simple questions on my assessment..Acute encephalopathy'
07/09 H & P, '...presenting for altered mental status. Patient was not responding verbally and EMS was called.'
Toxic screen on admission:
07/09/25
17:51
Salicylates 32.2 H*
Acetaminophen 70 H
07/10 PN, Physical Exam: Neuro: Awake, Alert, Oriented, AO x 3 and No Motor Deficits
Based on the above, could you clarify which, if any of the following, is the most likely etiology of the confusion/altered mental status:
Toxic Metabolic Encephalopathy, resolved
Altered mental status without encephalopathy
Other
Use of terms such as suspected, likely, concern for, or probable (associated with a specific diagnosis that is being evaluated, monitored, or treated as if it exists) are acceptable and can be coded in the inpatient setting, when documented at the
time of discharge.
Thank you,
SLOANE Culp RN
CDI Specialist
available via tiger text
Please use your independent medical judgment in providing your response.
--- NOTE | 2025-07-10 14:45 | PTCARENOTE ---
Assisted to the BR, she was steady on her feet and provided new bottoms and mesh underpants. Safe environment maintained.
--- NOTE | 2025-07-10 15:33 | PTCARENOTE ---
pt is aware she is being transferred to room 403-2.
--- NOTE | 2025-07-10 15:43 | TRANSFER ---
Report called to [facility] for room 403-2. Pt to be transported via w/c & telemetry.
--- NOTE | 2025-07-10 16:50 | PTCARENOTE ---
pt transfer from ICU. report received from MELODY Godoy. pt is AAO*3, Flat affect. pt refusing to eat. denies nausea. c/o slight abd discomfort/cramping. no PRN meds at this time. made aware. pt oriented to the room. call kidd within the reach. plan
of care ongoing.
[2025-07-10] MEDS: LOVENOX 40 MG SC (17:18)
--- NOTE | 2025-07-10 18:59 | PTCARENOTE ---
pt c/o abd cramping. cross coverage reached out. Jenna ordered. offered the med to the pt. pt refused.
[2025-07-10] MEDS: BENTYL 10 MG PO (21:29)
[2025-07-11 03:39] VITALS: BP 119/64
--- NOTE | 2025-07-11 06:33 | PTCARENOTE ---
Pt aaox3 able to make her needs known.Pt oob with 1 person assist. Pt denies of any suicidal thoughts. Plan of care continued on pt.Call kidd in reach.
[2025-07-11 06:55] LABS: Hematocrit 35.6 % (37.0-47.0); Hemoglobin 12.6 g/dL (12.0-16.0); Mean Corp Hgb Conc. 35.4 g/dL (33.0-37.0); Mean Corpuscular Volume 88.1 fL (81.0-99.0); Platelet Count 313 10^3/uL (130-400); Red Cell Dist. Width 13.2 % (11.5-14.5)
[2025-07-11 07:18] LABS: ALT (SGPT) 16 U/L (0-35); AST (SGOT) 37 U/L (14-36); Albumin 3.8 g/dl (3.5-5.0); Alkaline Phosphatase 62 U/L (38-126); Blood Urea Nitrogen 8 mg/dl (7-17); Calcium 9.5 mg/dl (8.4-10.2); Carbon Dioxide 26 mmol/L (22-30); Chloride 108 mmol/L (98-107); Estimated Creatinine Clearance 87 ml/min; Glucose 81 mg/dl (70-99); Potassium 4.1 mmol/L (3.5-5.1); Salicylate < 1.0 mg/dl (2.0-20.0); Sodium 138 mmol/L (135-145); Total Protein 6.5 g/dl (6.3-8.2); eGFR > 60.00
[2025-07-11 07:38] VITALS: BP 144/76
[2025-07-11] MEDS: PROTONIX 40 MG PO (08:53)
[2025-07-11] MEDS: LIORESAL 20 MG PO ×2 (08:53→20:19)
--- NOTE | 2025-07-11 10:05 | PTCARENOTE ---
Dr. Rowell made aware pt. very upset,crying, HR in the 140s, shes says because of a voicemail her brother left her and she is worried about loosing her apt. Pt. requested something for anxiety. New orders to follow.
[2025-07-11] MEDS: ATIVAN 0.5 MG PO (10:10)
--- NOTE | 2025-07-11 10:36 | CM ---
Reviewed Psych notes; 1:1 was discontinued.
CM met with patient, offered to find an available inpatient psychiatric bed; she is not agreeable/
She reported that her car is parked in [place]; and does not have the money for transportation to get there or someone to call to pick her up.
[2025-07-11 11:00] VITALS: BP 139/88
--- NOTE | 2025-07-11 11:33 | W.PN.UPDATE ---
Update Note
Progress Note Update
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 Was indifferent to the navin, but wa not definitivel trying to
kill herself. Had a bad experience working for [employer] fairly recently and was erminated, but cannot get the proper documentation to get Medicaid. Has had multiple psychiatric hospitalization and treatment with multiple medications. At least 2
SSRI's cause rages. May have TD treated with baclofen by a neurologist who diagnsed tremor. Confilct with brother. Parents both in recent years. Rent a room in [facility] and only paid through July.
She has been given multiple diagnoses, but self-describes Borderline Personality Disorder which seems likely. There is a history of impulsive behaviors, anger, etc.
Medically seems to be clearing. Labs good, no longer elevated salicylates or acetaminophen levels. Slept well, good appetite, no GI disturbance.
Mental Status - well groomed woman appearing her stated age, angry but pleasant on interview. Not overtly depressed; not tearful. Madae eye contact. Has grudges against a lot of people and dissatisfaction wit past treatment. Took some
responsibility for some issues. Appears bright and insightful. Not particularly hopeful and does not have ambition for finding a new job, etc. Reports having had panic attacks, but not today. No hallucinations recently. Is agreeable to going to
[facility] which we may be able to arrange for early next week.
Impression: Excedrin overdose, medically stabilizing
Borderline Personality Disorder (primary)
Adjustment Disorder with Depressed Mood
Plan: Given her lack of benefit and some adverse effects from past medications, will not prescribe any psychiatric medications at this time. Could consider a mood stabilizer or buspirone. Hopefully can arrange for PHP. Do not think inpatient
psychiatric hospitalization would be beneficial -- agree with Dr. Manzo's assessment.
I will see her tomorrow. Will benefit from another day of stabilization in the hospital
--- NOTE | 2025-07-11 12:32 | W.PN.HOSP.TC ---
Addendum entered and electronically signed by Karli Rowell MD 07/11/25 14:52:
o��� Toxic Metabolic Encephalopathy, resolved
Original Note:
Today's Communication/Plan
-
Meclizine.
Possible discharge in am
Assessment / Plan
Assessment / Plan
Impression:
45-year-old female past medical history of propranolol overdose, hypertension, hyperlipidemia, bipolar disorder, schizoaffective disorder, presenting for altered mental status. 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
hunched over behind her car this afternoon. Patient was not responding verbally and EMS was called. She reports having a migraine earlier in the day and took a massive number of Excedrin tablets to help with the headache. Although she has been
intermittently depressed she notes that her mood has not been particularly been bad in the past few days. She is complaining of vomiting and some abdominal discomfort from vomiting and shakiness. Denies diarrhea. Denies chest pain or shortness of
breath. She states that her headache is completely cured.
Her last migraine was in January.
She denies smoking or alcohol. She does have a medical marijuana card but she has not used marijuana since June.
Tylenol and aspirin level improved.
Downgraded from the ICU
Assessment/plan:
Tylenol/aspirin overdose
- Salicylate level 32
- Tylenol level 70
-Alcohol level negative
-EKG shows sinus tachycardia, possible left atrial enlargement, QTc of 480, QRS of 92
- Poison control at [facility] (Dr. Alvarado) recommended NAC and bicarb drip. Rechecking CMP and INR in the morning and if normal NAC can be discontinued. VBG, CMP and salicylates will be checked every 4 hours and bicarb drip can be stopped if pH greater
than 7.55 or salicylate level under 20 x2 and mentation normalizes
- UDS pending
- Urinalysis pending
- Zofran for nausea although check EKG every 8 hours to monitor for QTc prolongation and QRS widening
- Not suicidal, but one-to-one sitter given poor judgment
- Psychiatry consulted
07/10
Tylenol and aspirin level improved.
07/11
Appreciate psychiatry input
# Hypokalemia secondary to vomiting
Repleted
Dizziness.
Negative orthostatic
Ordered Meclizine
History of propranolol overdose
Essential hypertension
Hyperlipidemia
Bipolar disorder
Schizoaffective disorder
Medical marijuana user
Hx of migraines
CODE STATUS: Full code
DVT prophylaxis: Heparin
Diet: Regular diet
Disposition: Meclizine.
Possible discharge in am
Total time spent on today's encounter was 65 minutes which included time spent in counseling the patient/family regarding diagnosis and treatment plan as listed above, goals of care, and symptom management. Case was discussed with nursing staff,
specialists, and care coordinators/case management. All labs and imaging personally reviewed by me. Remainder the time spent in detailed review of previous records, lab data, imaging, and other medical provider documentation.
Anticipated Discharge: Within 24 hours
Subjective/Interval History
-
Date of Service: July 11, 2025
Patient downgraded from ICU.
No chest pain or shortness of breath.
Nausea improved.
Anxiety.
Objective Data
-
Labs:
Laboratory Results
07/11/25
06:17
WBC 10.1
Hgb 12.6
Hct 35.6 L
Plt Count 313 D
Sodium 138
Potassium 4.1
Chloride 108 H
Carbon Dioxide 26
BUN 8
Creatinine 0.6
Glucose 81
Calcium 9.5
Total Bilirubin 0.5
AST 37 H
ALT 16
Alkaline Phosphatase 62
Vital Signs:
Vital Signs
Temp Pulse Resp BP Pulse Ox
98.7 F 84 16 139/88 99
07/11/25 11:00 07/11/25 11:00 07/11/25 11:00 07/11/25 11:00 07/11/25 11:00
I&O
07/10/25 07/11/25 07/12/25
06:59 06:59 06:59
Intake Total 2135.5 / 2539.0
Balance 2135. / 2538.0
Physical Exam
-
General: Appears in Distress
HEENT: Normocephalic, Atraumatic, Moist Mucous Membranes, No Ptosis, PERRLA and Nose Appears Normal
Respiratory: Clear to Auscultation and Non Labored Respirations
Cardiac: Regular Rhythm and S1/S2
Breast: Deferred by me
GI: Soft, Nontender, Nondistended and Normal Bowel Sounds
Genito-urinary: No Costovertebral Tender
Musculoskeletal: No Clubbing, No Cyanosis and No Edema
Skin: Warm
Neuro: Awake, Alert, Oriented, AO x 3 and No Motor Deficits
Psych: Anxious
[2025-07-11 15:00] VITALS: BP 128/78
[2025-07-11] MEDS: ANTIVERT 25 MG PO ×2 (15:07→23:07)
[2025-07-11] MEDS: TIGAN 200 MG IM (15:08)
[2025-07-11] MEDS: LOVENOX SC (17:32)
[2025-07-11 19:16] VITALS: BP 143/85
[2025-07-11 23:13] VITALS: BP 136/77
[2025-07-12 03:27] VITALS: BP 136/83
[2025-07-12 07:00] VITALS: BP 139/77
[2025-07-12 07:57] LABS: ALT (SGPT) 18 U/L (0-35); AST (SGOT) 38 U/L (14-36); Albumin 3.8 g/dl (3.5-5.0); Alkaline Phosphatase 63 U/L (38-126); Blood Urea Nitrogen 14 mg/dl (7-17); Calcium 9.4 mg/dl (8.4-10.2); Carbon Dioxide 25 mmol/L (22-30); Chloride 109 mmol/L (98-107); Estimated Creatinine Clearance 87 ml/min; Glucose 79 mg/dl (70-99); Potassium 4.1 mmol/L (3.5-5.1); Sodium 140 mmol/L (135-145); Total Protein 6.5 g/dl (6.3-8.2); eGFR > 60.00
[2025-07-12] MEDS: LIORESAL 20 MG PO (08:30)
[2025-07-12] MEDS: PROTONIX 40 MG PO (08:31)
[2025-07-12 09:14] LABS: Hematocrit 35.9 % (37.0-47.0); Hemoglobin 12.5 g/dL (12.0-16.0); Mean Corp Hgb Conc. 34.8 g/dL (33.0-37.0); Mean Corpuscular Volume 90.4 fL (81.0-99.0); Platelet Count 379 10^3/uL (130-400); Red Cell Dist. Width 13.2 % (11.5-14.5)
[2025-07-12 11:00] VITALS: BP 150/81
--- NOTE | 2025-07-12 11:06 | W.PN.HOSP.TC ---
Today's Communication/Plan
-
Dc home.
Assessment / Plan
Assessment / Plan
Impression:
45-year-old female past medical history of propranolol overdose, hypertension, hyperlipidemia, bipolar disorder, schizoaffective disorder, presenting for altered mental status. 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
hunched over behind her car this afternoon. Patient was not responding verbally and EMS was called. She reports having a migraine earlier in the day and took a massive number of Excedrin tablets to help with the headache. Although she has been
intermittently depressed she notes that her mood has not been particularly been bad in the past few days. She is complaining of vomiting and some abdominal discomfort from vomiting and shakiness. Denies diarrhea. Denies chest pain or shortness of
breath. She states that her headache is completely cured.
Her last migraine was in January.
She denies smoking or alcohol. She does have a medical marijuana card but she has not used marijuana since June.
Tylenol and aspirin level improved.
Downgraded from the ICU
Seen by psych, advised to follow-up with outpatient
Discussed with the patient, she refused any suggestion for psych follow-up and she stated that I do not need any psych medications.
Advised to follow-up with PCP, patient said I do not any problem to be seen by physician and I do not need any medication.
Patient on baclofen at home and she stated that she will get this from her neurologist.
Assessment/plan:
Tylenol/aspirin overdose
- Salicylate level 32
- Tylenol level 70
-Alcohol level negative
-EKG shows sinus tachycardia, possible left atrial enlargement, QTc of 480, QRS of 92
- Poison control at [facility] (Dr. Alvarado) recommended NAC and bicarb drip. Rechecking CMP and INR in the morning and if normal NAC can be discontinued. VBG, CMP and salicylates will be checked every 4 hours and bicarb drip can be stopped if pH greater
than 7.55 or salicylate level under 20 x2 and mentation normalizes
- UDS pending
- Urinalysis pending
- Zofran for nausea although check EKG every 8 hours to monitor for QTc prolongation and QRS widening
- Not suicidal, but one-to-one sitter given poor judgment
- Psychiatry consulted
07/10
Tylenol and aspirin level improved.
07/11
Appreciate psychiatry input
07/12
Charge home today
# Hypokalemia secondary to vomiting
Repleted
Toxic Metabolic Encephalopathy, resolved
Dizziness.
Negative orthostatic
Ordered Meclizine
History of propranolol overdose
Essential hypertension
Hyperlipidemia
Bipolar disorder
Schizoaffective disorder
Medical marijuana user
Hx of migraines
CODE STATUS: Full code
DVT prophylaxis: Heparin
Diet: Regular diet
Disposition: Discharge home.
Total time spent on today's encounter was 65 minutes which included time spent in counseling the patient/family regarding diagnosis and treatment plan as listed above, goals of care, and symptom management. Case was discussed with nursing staff,
specialists, and care coordinators/case management. All labs and imaging personally reviewed by me. Remainder the time spent in detailed review of previous records, lab data, imaging, and other medical provider documentation.
Anticipated Discharge: Today
Subjective/Interval History
-
Date of Service: July 12, 2025
Patient seen and examined at bedside, denies any chest pain or shortness of breath, no abdominal pain, no nausea, no vomiting, no diarrhea or constipation.
Still with dizziness, ordered meclizine.
Objective Data
-
Labs:
Laboratory Results
07/12/25
06:36
WBC 8.8
Hgb 12.5
Hct 35.9 L
Plt Count 379 D
Sodium 140
Potassium 4.1
Chloride 109 H
Carbon Dioxide 25
BUN 14
Creatinine 0.6
Glucose 79
Calcium 9.4
Total Bilirubin 0.5
AST 38 H
ALT 18
Alkaline Phosphatase 63
Vital Signs:
Vital Signs
Temp Pulse Resp BP Pulse Ox
98.7 F 79 16 139/77 98
07/12/25 07:00 07/12/25 07:00 07/12/25 07:00 07/12/25 07:00 07/12/25 07:00
I&O
07/11/25 07/12/25 07/13/25
06:59 06:59 06:59
Intake Total 2112.5 / 2112.5 1440 / 1440
Balance 2112.5 / 2112.5 1440 / 1440
Physical Exam
-
General: Well Developed
HEENT: Normocephalic, Atraumatic, Moist Mucous Membranes, No Ptosis, PERRLA and Nose Appears Normal
Respiratory: Clear to Auscultation and Non Labored Respirations
Cardiac: Regular Rhythm and S1/S2
Breast: Deferred by me
GI: Soft, Nontender, Nondistended and Normal Bowel Sounds
Genito-urinary: No Costovertebral Tender
Musculoskeletal: No Clubbing, No Cyanosis and No Edema
Skin: Warm
Neuro: Awake, Alert, Oriented, AO x 3 and No Motor Deficits
Psych: Calm
--- NOTE | 2025-07-12 11:10 | W.DCSUMMARY ---
Discharge Summary
Discharge Data
Date of Admission: 07/09/25
Date of Discharge: 07/12/25
Total time spent discharging patient (in min): 40
-
Pending Results: No
Hospital Course
Hospital course
45-year-old female past medical history of propranolol overdose, hypertension, hyperlipidemia, bipolar disorder, schizoaffective disorder, presenting for altered mental status. 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
hunched over behind her car this afternoon. Patient was not responding verbally and EMS was called. She reports having a migraine earlier in the day and took a massive number of Excedrin tablets to help with the headache. Although she has been
intermittently depressed she notes that her mood has not been particularly been bad in the past few days. She is complaining of vomiting and some abdominal discomfort from vomiting and shakiness. Denies diarrhea. Denies chest pain or shortness of
breath. She states that her headache is completely cured.
Her last migraine was in January.
She denies smoking or alcohol. She does have a medical marijuana card but she has not used marijuana since June.
Tylenol and aspirin level improved.
Downgraded from the ICU
Seen by psych, advised to follow-up with outpatient
Discussed with the patient, she refused any suggestion for psych follow-up and she stated that I do not need any psych medications.
Advised to follow-up with PCP, patient said I do not any problem to be seen by physician and I do not need any medication.
Patient on baclofen at home and she stated that she will get this from her neurologist.
During hospitalization patient was treated from the following
Tylenol/aspirin overdose
- Salicylate level 32
- Tylenol level 70
-Alcohol level negative
-EKG shows sinus tachycardia, possible left atrial enlargement, QTc of 480, QRS of 92
- Poison control at [facility] (Dr. Alvarado) recommended NAC and bicarb drip. Rechecking CMP and INR in the morning and if normal NAC can be discontinued. VBG, CMP and salicylates will be checked every 4 hours and bicarb drip can be stopped if pH greater
than 7.55 or salicylate level under 20 x2 and mentation normalizes
- UDS pending
- Urinalysis pending
- Zofran for nausea although check EKG every 8 hours to monitor for QTc prolongation and QRS widening
- Not suicidal, but one-to-one sitter given poor judgment
- Psychiatry consulted
07/10
Tylenol and aspirin level improved.
07/11
Appreciate psychiatry input
07/12
Charge home today
# Hypokalemia secondary to vomiting
Repleted
Toxic Metabolic Encephalopathy, resolved
Dizziness.
Negative orthostatic
Ordered Meclizine
History of propranolol overdose
Essential hypertension
Hyperlipidemia
Bipolar disorder
Schizoaffective disorder
Medical marijuana user
Hx of migraines
CODE STATUS: Full code
DVT prophylaxis: Heparin
Diet: Regular diet
Disposition: Discharge home.
Total time spent on today's encounter was 40 minutes which included time spent in counseling the patient/family regarding diagnosis and treatment plan as listed above, goals of care, and symptom management. Case was discussed with nursing staff,
specialists, and care coordinators/case management. All labs and imaging personally reviewed by me. Remainder the time spent in detailed review of previous records, lab data, imaging, and other medical provider documentation.
Anticipated Discharge: Today
Discharge Plan
-
Patient Disposition: Home (Routine Discharge)
Discharge Diagnosis/Procedures: Tylenol/aspirin overdose
Hypokalemia
Dizziness/vertigo
Diet: As tolerated and Regular
Referrals:
PCP [Other] - in one week
[facility] [Provider Group]
Referral Note: As scheduled
Prescriptions:
New
meclizine 25 mg Tablet
25 mg PO Q8HPRN PRN (Reason: Dizziness) Qty: 20 0RF
Continued
baclofen 20 mg Tablet
20 mg PO BID
Discontinued
[id number] [Excedrin Migraine] 250-250-65 mg Tablet
2 tab PO Q6H PRN (Reason: migraine)
Discharge Orders:
Discharge Patient (As Directed); Ordered 07/12/25
Ordered By: Karli Rowell
Discharge Date and Time
Print Language: BENGALI
--- NOTE | 2025-07-12 11:54 | W.PN.UPDATE ---
Update Note
Progress Note Update
Pt. seen briefly, is awaiting discharge today from the hospital. I asked if there was anything I could do for her today and she said no. She is not on any psychiatric medications at this time. Has medically recovered from acetaminophen/ASA
overdose. Psychiatric hospitalization not needed. This is one of multiple overdoses in a woman likely with a borderline personality disorder.
We are referring to [facility] and she seems somewhat agreeable to attending. She knows the visual basic programmer, Dr. Barnes.
She is being given a ride to her car by the hospital; her rent in [place] is paid for several more weeks.
--- NOTE | 2025-07-12 12:21 | CM ---
Addendum entered by Bibi Prajapati 07/12/25 13:59:
Lyft transport scheduled for [address]
Original Note:
Plan: Discharge today, no needs
Patient reported that she does not have anyone to transport her to her parked car located @ [address] [place] [address]. Lyft transport scheduled
Patient also requested that primary contact/friend Tenisha, be removed from record; notified Admissions; contact removed
== END 2025-07-12 12:59 | disposition home or self-care (01) | DRG 917 ==
LOC: 4 EAST ACU 20:15
PROVIDERS: Emergency Medicine; Nurse Practitioner Primary Care; Physician Assistant; ADMITTING PHYSICIAN Hospitalist; ATTENDING PHYSICIAN General Practice; CONSULT PHYSICIAN Internal Medicine Critical Care Medicine; EMERGENCY PHYSICIAN Emergency Medicine; OTHER PHYSICIAN Psychiatry & Neurology Psychiatry
DX: T39.011A Poisoning by aspirin, accidental (unintentional), initial encounter (principal); G92.8 Other toxic encephalopathy; E87.3 Alkalosis; I10 Essential (primary) hypertension; E78.00 Pure hypercholesterolemia, unspecified; T39.1X1A Poisoning by 4-Aminophenol derivatives, accidental (unintentional), initial encounter; E87.6 Hypokalemia; D72.829 Elevated white blood cell count, unspecified; G47.33 Obstructive sleep apnea (adult) (pediatric); R73.9 Hyperglycemia, unspecified; F60.3 Borderline personality disorder; F43.21 Adjustment disorder with depressed mood; G43.909 Migraine, unspecified, not intractable, without status migrainosus; Z56.0 Unemployment, unspecified; Z59.71 Insufficient health insurance coverage; Z63.8 Other specified problems related to primary support group; Z79.899 Other long term (current) drug therapy
CPT/HCPCS: 70450; 71045; 80053; 80143; 80179; 80306; 81003; 81015; 82077; 82805; 83735; 84100; 84443; 84484; 84703; 85025; 85027; 85610; 85730; 93005; 96361; 96365; 96366; 96375; 96376; 99291; J0132; J7030